=== PATIENT | male | born 1950 | race Caucasian/White ===

== ENCOUNTER 2020-09-03 08:01 | Outpatient (CLI) | payer MEDICARE, OTHER, SELFPAY ==
--- NOTE | 2020-09-03 08:00 | XRR_ITS ---
PROCEDURE INFORMATION: Exam: XR Abdomen, 1 View Exam date and time: 09/03/2020 8:13 AM Age: 70 years old Clinical indication: Condition or disease; Kidney or ureter condition; Calculus (stone) in kidney; Prior surgery; Surgery date: 6+ months; Surgery type: Lt kidney. Gb; Additional info: Renal stone TECHNIQUE: Imaging protocol: XR of the abdomen. Views: Frontal supine view of the abdomen. 1 View. COMPARISON: CR XR KUB [id number] 09/02/2018 8:39 AM FINDINGS: Gastrointestinal tract: Normal. No bowel dilation. Organs: There are clips in the right upper quadrant from cholecystectomy. No urinary calcifications are seen. Bones/joints: Degenerative changes are present in the spine with joint space narrowing sclerosis and osteophytes. XR/XR KUB [id number] IMPRESSION: No acute abnormality. No urinary calcifications are seen.
--- NOTE | 2020-09-03 08:13 | XRR_ITS ---
PROCEDURE INFORMATION: Exam: XR Chest, 2 Views Exam date and time: 09/03/2020 8:13 AM Age: 70 years old Clinical indication: Condition or disease; Patient HX: HX of renal cell cancer; Check up TECHNIQUE: Imaging protocol: XR of the chest Views: 2 views. COMPARISON: CR Chest 2 views* [id number] 09/02/2018 8:36 AM FINDINGS: Lungs: Unremarkable. No consolidation. Pleural space: Unremarkable. No pleural effusion. No pneumothorax. Heart/Mediastinum: Unremarkable. No cardiomegaly. Bones/joints: Unremarkable. XR/XR chest 2V* [id number] IMPRESSION: No acute findings.
== END 2020-09-03 08:02 | disposition home or self-care (01) ==
PROVIDERS: PCP Family Medicine; Visit Provider Urology
DX: N20.0 Calculus of kidney (principal); C64.9 Malignant neoplasm of unspecified kidney, except renal pelvis; R97.20 Elevated prostate specific antigen [PSA]
CPT/HCPCS: 71046; 74018; 80053; 81003; 84153; 85025

== ENCOUNTER 2021-09-03 12:50 | Outpatient (CLI) | payer MEDICARE, OTHER, SELFPAY ==
--- NOTE | 2021-09-03 12:57 | XR_ITS ---
WS: [id number] Chest 2 views, 09/03/2021 Clinical Data: hx kidney cancer Comparison: PA and lateral chest, 09/03/2020. Findings: No nodules, masses or effusions are seen. The heart is normal. The pulmonary vascularity is not increased. No pneumonia or pneumothorax is seen. The aortic arch shows minimal calcification. Th ere are clips in the right upper quadrant from a cholecystectomy. XR/XR chest 2V* [id number] Impression: Atherosclerosis.
--- NOTE | 2021-09-03 12:57 | XR_ITS ---
WS: [id number] KUB, AP view, 09/03/2021 Clinical Data: UROLITHIASIS Comparison: KUB, 09/03/2020. Findings: No abnormal intraabdominal masses or calcifications are seen. There is no dilatated small bowel or ev idence of obstruction. There are clips in the right upper quadrant from a cholecystectomy. There are clips on the left side of the abdomen adjacent to the T12 and L1 vertebral bodies from renal surgery. No metastatic lesions are seen. 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 XR/XR KUB [id number] Impression: Negative KUB.
[2021-09-03 13:34] LABS: Basophils # 0.1 10^3/uL (0.0-0.1); Basophils % 1.4 %; Eosinophils # 0.3 10^3/uL (0.0-0.8); Eosinophils % 4.4 %; Hemoglobin 15.9 g/dL (11.7-16.6); Lymphocytes % 30.6 %; Mean Corpuscular HGB Conc 34.6 g/dL (30.0-36.0); Mean Corpuscular Hemoglobin 30.6 pg (28.0-34.0); Mean Corpuscular Volume 88.5 fl (80-94); Mean Platelet Volume 9.4 fL (7.4-10.4); Monocytes # 0.8 10^3/uL (0.2-0.9); Monocytes % 12.5 %; Neutrophils # 3.33 10^3/uL (1.8-7.7); Neutrophils % 50.8 %; Nucleated Red Blood Cells % 0 %; Platelet Count 244 10^3/cmm (130-400); Red Cell Distribution Width 12.4 % (12.1-15.1); White Blood Count 6.6 10^3/uL (4.0-10.0)
[2021-09-03 14:02] LABS: Alanine Aminotransferase 32 U/L (0-41); Albumin Level 4.1 g/dL (3.5-5.2); Alkaline Phosphatase 96 IU/L (40-130); Anion Gap 16.5 (5-19); Aspartate Amino Transferase 29 U/L (0-40); Blood Urea Nitrogen 16 mg/dL (8-23); Calcium 8.8 mg/dL (8.5-10.5); Carbon Dioxide 22 mmol/L (22-29); Chloride 104 mmol/L (98-107); Glomerular Filtration Rate 54.6 mL/min (90-130); Glucose 86 mg/dL (65-115); Osmolality Calculated 286 mOsm/kg (285-295); Potassium 4.5 mmol/L (3.5-5.1); Sodium 138 mmol/L (136-145); Total Bilirubin 0.5 mg/dL (0.15-1.2); Total Protein 7.1 g/dL (6.6-8.7)
== END 2021-09-03 12:51 | disposition home or self-care (01) ==
PROVIDERS: PCP Family Medicine; Visit Provider Urology
DX: R97.20 Elevated prostate specific antigen [PSA] (principal); Z85.528 Personal history of other malignant neoplasm of kidney; N20.9 Urinary calculus, unspecified; I70.90 Unspecified atherosclerosis
CPT/HCPCS: 71046; 74018; 80053; 81003; 84153; 85025

== ENCOUNTER 2022-03-19 07:54 | Outpatient (CLI) | payer MEDICARE, OTHER, SELFPAY ==
--- NOTE | 2022-03-19 07:30 | XR_ITS ---
WS: [id number] KUB, AP view, 03/19/2022 Clinical Data: CALCULUS OF UPPER URINARY TRACT Comparison: KUB, 09/03/2021. Findings: There are clips in the right upper quadrant and adjacent to the left side of the T12 and L1 vertebral bodies. There is fecal material throughout the colon. No abnormal intra-abdominal masses or calcifications are seen. There are osteoarthritic changes of th e lumbar spine. XR/XR KUB [id number] Impression: Large amount of fecal material throughout the colon.
== END 2022-03-19 07:55 | disposition home or self-care (01) ==
LOC: RAD 07:54
PROVIDERS: PCP Family Medicine; Visit Provider Urology
DX: N20.9 Urinary calculus, unspecified (principal)
CPT/HCPCS: 74018; 81003; 99213